=== PATIENT | male | born 1960 | race Two or more races ===

== ENCOUNTER 2020-03-15 06:44 | Inpatient (IN) | payer OTHER ==
[~2020-03-15] VITALS: Ht 165.1 cm; Wt 69.1 kg
[2020-03-15] MEDS ORDERED: CLOP75TA3 PO (07:25)
[2020-03-15] MEDS ORDERED: ZOLP-280 PO (07:25)
[2020-03-15 07:39] LABS: HEMOGLOBIN 9.3 g/dL (13.5-17.5); MEAN CORPUSCULAR HEMOGLOBIN 24.5 pg (26.0-34.0); MEAN CORPUSCULAR HGB CONC 33.2 G/dL (31.0-37.0); MEAN CORPUSCULAR VOLUME 74 fL (80-100); PLATELET COUNT (AUTO) 291 K/uL (150-450); RED CELL DISTRIBUTION WIDTH 28.1 % (11.5-14.5)
[2020-03-15] MEDS ORDERED: SODIUM CHLORIDE 0.9% 1,000 ML IV ONE (07:45)
[2020-03-15 07:48] LABS: ANION GAP 8 mmol/L (8-16); CALCIUM, TOTAL 6.4 mg/dL (8.8-10.5); CARBON DIOXIDE 24 mmol/L (22-29); CHLORIDE 104 mmol/L (98-107); CREATININE 1.11 mg/dL (0.60-1.30); GLOMERULAR FILTR. RATE CALC > 60 mL/min (>60); GLUCOSE,RANDOM 114 mg/dL (70-110); POTASSIUM 3.2 mmol/L (3.5-5.1); SALICYLATE < 2.8 mg/dL (2.8-20.0); SODIUM SERUM 136 mmol/L (136-145); UREA NITROGEN, BLOOD 11 mg/dL (7-18)
[2020-03-15 07:55] LABS: TROPONIN I 0.02 ng/mL (0.00-0.05)
[2020-03-15 07:58] LABS: LACTIC ACID 0.8 mmol/L (0.4-2.0)
[2020-03-15 08:00] LABS: BAND NEUTROPHILS % (MANUAL) 2 % (0-5); LYMPHOCYTES % (MANUAL) 38 % (22-44); MONOCYTES % (MANUAL) 7 % (2-9); SEGMENTED NEUTROPHILS % 53 % (40-70)
[2020-03-15 08:12] LABS: ALANINE AMINOTRANSFERASE 26 U/L (12-78); ALKALINE PHOSPHATASE 43 U/L (46-116); ASPARTATE AMINOTRANSFERASE 19 U/L (15-37); BILIRUBIN,TOTAL 0.1 mg/dL (0.1-1.0); CREATINE KINASE, TOTAL ONLY 125 U/L (39-308); TOTAL PROTEIN, SERUM 5.6 g/dL (6.4-8.2)
[2020-03-15 08:24] LABS: ACETAMINOPHEN 4 mcg/mL (10-30)
[2020-03-15 08:29] LABS: APPEARANCE,URINE CLEAR (CLEAR); BILIRUBIN,URINE NEGATIVE (NEGATIVE); GLUCOSE, URINE (UA) NEGATIVE (NEGATIVE); KETONES,URINE NEGATIVE (NEGATIVE); LEUKOCYTE ESTERASE ,URINE NEGATIVE (NEGATIVE); NITRATE,URINE NEGATIVE (NEGATIVE); OCCULT BLOOD,URINE NEGATIVE (NEGATIVE); PH,URINE 7.5 (5.0-8.0); PROTEIN,URINE NEGATIVE (NEGATIVE); UROBILINOGEN,URINE 0.2 mg/dL (<=1.0)
[2020-03-15 08:33] LABS: AMPHET/METH SCREEN,URINE NEGATIVE (NEGATIVE); BARBITURATE SCREEN, URINE NEGATIVE (NEGATIVE); BENZODIAZEPINES SCREEN,URINE NEGATIVE (NEGATIVE); CANNABINOID SCREEN,URINE POSITIVE (NEGATIVE); COCAINE SCREEN,URINE NEGATIVE (NEGATIVE); METHADONE SCREEN, URINE NEGATIVE (NEGATIVE); OPIATE SCREEN,URINE POSITIVE (NEGATIVE)
[2020-03-15 08:39] LABS: PHENCYCLIDINE SCREEN,URINE NEGATIVE (NEGATIVE)
[2020-03-15] MEDS ORDERED: ACETAMINOPHEN 325 MG TABLET PO PRN (09:45)
[2020-03-15] MEDS ORDERED: 0.9% SODIUM CHLORIDE 10 ML SYRINGE IVP PRN (09:45)
[2020-03-15] MEDS ORDERED: ONDANSETRON HCL 4 MG/2 ML VIAL IVP PRN (09:45)
[2020-03-15] MEDS ORDERED: BUSP10TA23 PO (10:15)
[2020-03-15] MEDS ORDERED: VALA500T34 PO (10:15)
[2020-03-15] MEDS ORDERED: BACTDSB PO (10:15)
[2020-03-15] MEDS ORDERED: FLUC100T8 PO (10:15)
[2020-03-15] MEDS ORDERED: LEVO-72 PO (10:15)
[2020-03-15] MEDS ORDERED: LEVO100 PO (10:15)
[2020-03-15] MEDS ORDERED: CALC-1038 PO (10:15)
[2020-03-15] MEDS ORDERED: METF-960 PO (10:15)
[2020-03-15] MEDS ORDERED: LOSA-88 PO (10:15)
[2020-03-15] MEDS ORDERED: BUPR-93 PO (10:15)
[2020-03-15] MEDS ORDERED: SENN-277 PO (10:15)
[2020-03-15] MEDS ORDERED: LOVA-74 PO (10:15)
[2020-03-15] MEDS ORDERED: CHOL100018 PO (10:15)
[2020-03-15] MEDS ORDERED: TRAZ-257 PO (10:15)
[2020-03-15] MEDS ORDERED: ENTE0.5T4 PO (10:15)
[2020-03-15] MEDS ORDERED: APIX5TAB PO (10:15)
[2020-03-15 10:47] VITALS: BP 130/91
[2020-03-15] MEDS ORDERED: LORazepam 2 MG/ML VIAL IVP ONE (13:00)
[2020-03-15 15:55] VITALS: BP 126/83
[2020-03-15] MEDS ORDERED: SENN8.6T90 PO (16:38)
[2020-03-15] MEDS ORDERED: TraZODone HCL 100 MG TABLET PO PRN (16:45)
[2020-03-15 19:17] VITALS: BP 130/79
[2020-03-15] MEDS: APIXABAN 5 MG TABLET PO SCH (21:04)
[2020-03-15] MEDS: SENNA 187 MG TABLET PO SCH (21:04)
[2020-03-15] MEDS: FLUCONAZOLE 100 MG TABLET PO SCH (21:04)
[2020-03-15] MEDS: ValACYclovir HCL 500 MG TABLET PO SCH (21:05)
[2020-03-15] MEDS: CALCIUM OYSTER SHELL 500 MG TABLET PO SCH (21:05)
[2020-03-15] MEDS: BusPIRone HCL 10 MG TABLET PO SCH (21:05)
[2020-03-15 23:42] VITALS: BP 107/70
[2020-03-16] MEDS ORDERED: MELATONIN 5 MG TABLET PO PRN (00:15)
[2020-03-16 05:12] VITALS: BP 135/68
[2020-03-16 06:38] LABS: HEMATOCRIT 32.5 % (41-53); HEMOGLOBIN 10.9 g/dL (13.5-17.5); MEAN CORPUSCULAR HEMOGLOBIN 24.5 pg (26.0-34.0); MEAN CORPUSCULAR HGB CONC 33.6 G/dL (31.0-37.0); MEAN CORPUSCULAR VOLUME 73 fL (80-100); RED BLOOD CELL COUNT(AUTO) 4.45 MIL/uL (4.50-5.90); RED CELL DISTRIBUTION WIDTH 28.4 % (11.5-14.5)
[2020-03-16 06:57] LABS: PLATELET COUNT (AUTO) 304 K/uL (150-450)
[2020-03-16 07:02] LABS: ALANINE AMINOTRANSFERASE 36 U/L (12-78); ALBUMIN 3.8 g/dL (3.4-5.0); ALKALINE PHOSPHATASE 52 U/L (46-116); ANION GAP 12 mmol/L (8-16); ASPARTATE AMINOTRANSFERASE 23 U/L (15-37); BILIRUBIN,TOTAL 0.2 mg/dL (0.1-1.0); CALCIUM, TOTAL 8.2 mg/dL (8.8-10.5); CARBON DIOXIDE 24 mmol/L (22-29); CHLORIDE 102 mmol/L (98-107); CREATININE 1.06 mg/dL (0.60-1.30); GLOMERULAR FILTR. RATE CALC > 60 mL/min (>60); GLUCOSE,RANDOM 123 mg/dL (70-110); POTASSIUM 4.2 mmol/L (3.5-5.1); SODIUM SERUM 138 mmol/L (136-145); UREA NITROGEN, BLOOD 11 mg/dL (7-18)
[2020-03-16 07:12] VITALS: BP 124/79
[2020-03-16] MEDS: FLUCONAZOLE 100 MG TABLET PO SCH (08:14)
[2020-03-16] MEDS: ValACYclovir HCL 500 MG TABLET PO SCH (08:15)
[2020-03-16] MEDS: CALCIUM OYSTER SHELL 500 MG TABLET PO SCH (08:15)
[2020-03-16] MEDS: APIXABAN 5 MG TABLET PO SCH (08:15)
[2020-03-16] MEDS: BusPIRone HCL 10 MG TABLET PO SCH (08:15)
[2020-03-16] MEDS: SENNA 187 MG TABLET PO SCH (08:15)
[2020-03-16] MEDS ORDERED: CHOLECALCIFEROL (VIT D3) 1,000 UNITS [25 MCG] TABLET PO SCH (09:00)
[2020-03-16] MEDS ORDERED: BuPROPion HCL XL 150 MG ER TABLET PO SCH (09:00)
[2020-03-16] MEDS ORDERED: LEVOTHYROXINE SODIUM 100 MCG TABLET PO SCH (09:00)
[2020-03-16] MEDS ORDERED: LOVASTATIN 20 MG TABLET PO SCH (09:00)
[2020-03-16] MEDS ORDERED: LEVOFLOXACIN 500 MG TABLET PO SCH (09:00)
[2020-03-16] MEDS ORDERED: [UNRECOGNIZED DRUG - OTHER] PO SCH (09:00)
[2020-03-16] MEDS ORDERED: SULFAMETHOX/TRIMETH DS 800-160 MG/TABLET PO SCH (09:00)
[2020-03-16 09:51] LABS: BAND NEUTROPHILS % (MANUAL) 3 % (0-5); LYMPHOCYTES % (MANUAL) 24 % (22-44); MONOCYTES % (MANUAL) 10 % (2-9); SEGMENTED NEUTROPHILS % 63 % (40-70)
[2020-03-16] MEDS ORDERED: LORazepam 2 MG/ML VIAL IVP ONE (10:45)
== END 2020-03-16 11:15 | disposition home or self-care (01) | DRG 917 ==
LOC: EDUNIT# 06:44 → EMS 06:44 → 5S 09:40
PROVIDERS: ADMIT Internal Medicine; ATTEND Internal Medicine
DX: T42.6X2A Poisoning by other antiepileptic and sedative-hypnotic drugs, intentional self-harm, initial encounter (principal); G92 Toxic encephalopathy; E44.0 Moderate protein-calorie malnutrition; C85.90 Non-Hodgkin lymphoma, unspecified, unspecified site; F32.2 Major depressive disorder, single episode, severe without psychotic features; Z68.25 Body mass index [BMI] 25.0-25.9, adult; E03.9 Hypothyroidism, unspecified; I95.9 Hypotension, unspecified; I25.2 Old myocardial infarction; F12.10 Cannabis abuse, uncomplicated; I50.9 Heart failure, unspecified; Y92.89 Other specified places as the place of occurrence of the external cause
CPT/HCPCS: 51702; 70450; 83605; 87040; 93005; 99291; G0480; G0481; J2060; J2405